=== PATIENT | male | born 1950 | race Caucasian/White ===

== ENCOUNTER → 2020-05-12 | Outpatient (CLI) | payer SELFPAY ==
--- NOTE | 2020-05-12 12:50 | KCIC ---
RS Compliance Statement: One or more of the following individualized dose reduction techniques were utilized for this examination: 1. Automated exposure control 2. Adjustment of the mA and/or kV according to patient size 3. Use of iterative reconstruction technique Coronary calcium score CT chest without contrast History: 69-year-old male, essential hypertension, hypercholesterolemia, family history of CAD. Technique: With retrospective electrocardiogram gating axial reconstructed noncontrast images of the chest at the level of the coronary arteries was performed. Images were post processed on workstation and calcium score calculated using the modified Agatston Janowitz protocol. Findings: Total coronary calcium score is 1413. This is an extensive plaque burden and very high cardiovascular disease risk. This is based on the calcium score of 0 of the left main coronary artery, 481.6 of the left anterior descending artery, score of 427.2 of the left circumflex artery and score of 504.5 of the right coronary artery. Noncoronary findings demonstrate aneurysm of the ascending thoracic aorta, diameter is 4.5 cm. The cardiac size is normal, no pericardial effusion. The visualized upper abdomen is unremarkable. Peripheral groundglass opacity measuring approximately 8 mm in the posterior left lower lobe may be due to scarring, image 25. Visualized lungs are otherwise clear. IMPRESSION: 1. Patient's total calcium score is 1413. 2. Aneurysm of the ascending thoracic aorta. Electronically signed by: Michael Miller MD (05/12/2020 12:47 PM) [id number]
== END | disposition home or self-care (01) ==
LOC: KCIC CT 10:34
PROVIDERS: ATTEND Internal Medicine Cardiovascular Disease
DX: Z13.6 Encounter for screening for cardiovascular disorders (principal); I10 Essential (primary) hypertension; I71.2 Thoracic aortic aneurysm, without rupture
CPT/HCPCS: 75571

== ENCOUNTER → 2020-05-25 | Outpatient (CLI) | payer MEDICARE, OTHER ==
--- NOTE | 2020-05-26 16:28 | CARD ---
MR#: [id number] Date of Study: 05/25/2020 Ordering Physician: TIFFANIE BENTLEY, Referring Physician: TIFFANIE BENTLEY, Tech: Scarlet Narvaez APPROVED REPORT EXAM: Two-dimensional and M-mode echocardiogram with Doppler and color Doppler. INDICATION Hypertension/HCVD RISK FACTORS Hypertension Hyperlipidemia 2D DIMENSIONS Left Atrium(2D)3.2 (1.6-4.0cm)IVSd1.3 (0.7-1.1cm) Aortic Root(2D)3.8 (2.0-3.7cm)LVDd5.0 (3.9-5.9cm) LVOT Diameter2.2 (1.8-2.4cm)PWd1.1 (0.7-1.1cm) LVDs3.0 (2.5-4.0cm)FS (%) 40.5 % SV85.7 ml Aortic Valve AoV Peak Antony.107.4cm/sAoV VTI20.4cm AO Peak GR.4.6mmHgLVOT Peak Antony.80.9cm/s LVOT VTI 15.21cmAO Mean GR.3mmHg WHIT (VMAX)2.76iw6YCL (VTI)2.90cm2 Mitral Valve MV E Qzpngcio32.1cm/sMV DECEL KDII032wq MV A Zthpmdft35.9cm/sMV E Mean Gr.1mmHg MV RPU731roX/A Ratio0.9 MVA (PHT)1.54cm2 TDI E/Lateral E'5.7E/Medial E'7.0 Pulmonary Valve PV Peak Oxzpdjyh03.8cm/sPV Peak Grad.4mmHg Tricuspid Valve TR P. Wxqodjkl436zc/sRAP QJDDKCNW3anOo TR Peak Gr.64jcGoBRQB66vrCf LEFT VENTRICLE The left ventricle is normal size. There is borderline to mild concentric left ventricular hypertroph y. The left ventricular systolic function is normal and the ejection fraction is within normal range. The Ejection Fraction is 55-60%. There is normal LV segmental wall motion. Transmitral Doppler flow pattern is Grade I-abnormal relaxation pattern. RIGHT VENTRICLE The right ventricle is normal size. The right ventricle is mildly hypertrophied. The right ventricula r systolic function is normal. ATRIA The left atrium size is normal. The right atrium size is normal. The interatrial septum is intact wit h no evidence for an atrial septal defect or patent foramen ovale as noted on 2-D or Doppler imaging. AORTIC VALVE The aortic valve is normal in structure and function. Doppler and Color Flow revealed no significant aortic regurgitation. There is no significant aortic valvular stenosis. Calculated aortic valve area is 3.29 cm2 with maximum pressure gradient of 5 mmHg and mean pressure gradient of 3 mmHg. MITRAL VALVE The mitral valve is normal in structure and function. There is no evidence of mitral valve prolapse. There is no mitral valve stenosis. Doppler and Color-flow revealed trace mitral regurgitation. TRICUSPID VALVE The tricuspid valve is not well visualized. Doppler and Color Flow revealed trace tricuspid regurgita tion with an estimated PAP of 23 mmHg. There is no tricuspid valve stenosis. PULMONIC VALVE The pulmonic valve is not well visualized. Doppler and Color Flow revealed no pulmonic valvular regur gitation. GREAT VESSELS The aortic root is mildly enlarged. The ascending aorta is mildly dilated measuring 4.02 cm The IVC i s normal in size and collapses >50% with inspiration. PERICARDIAL EFFUSION There is no evidence of significant pericardial effusion. Critical Notification Critical Value: No <Conclusion> The left ventricle is normal size. The left ventricular systolic function is normal and the ejection fraction is within normal range. The Ejection Fraction is 55-60%. There is borderline to mild concentric left ventricular hypertrophy. Doppler and Color Flow revealed no significant aortic regurgitation. There is no significant aortic valvular stenosis. Doppler and Color-flow revealed trace mitral regurgitation. Doppler and Color Flow revealed trace tricuspid regurgitation with an estimated PAP of 23 mmHg. The ascending aorta is mildly dilated measuring 4.02 cm Signed by : Bartolo Alvarez MD Electronically Approved : 05/26/2020 16:27:16
== END | disposition home or self-care (01) ==
LOC: ECHO 14:27 → EDUNIT# 15:00
PROVIDERS: ATTEND Internal Medicine Cardiovascular Disease
DX: I51.7 Cardiomegaly (principal); I25.10 Atherosclerotic heart disease of native coronary artery without angina pectoris
CPT/HCPCS: 93306

== ENCOUNTER → 2020-05-28 | Outpatient (CLI) | payer MEDICARE, OTHER ==
--- NOTE | 2020-05-28 15:41 | RAD ---
MR#: [id number] Date of Study: 05/28/2020 Ordering Physician: TIFFANIE BENTLEY, Referring Physician: DIMITRIOS AGUILAR Tech: RT Sarah (R) (N) APPROVED REPORT Test Type: Exercise Stress Nurse/Tech: Lanette Caputo RN Test Indications: CAD Cardiac History: HTN, See EMR. Medications: See EMR. Medical History: See EMR. Resting ECG: SR Resting Heart Rate: 70 bpm Resting Blood Pressure: 136/86mmHg Pretest Chest Pain: No chest pain Nurse/Tech Notes Lungs CTA, Heart tones regular. Consent: The procedure was explained to the patient in lay terms. Informed consent was witnessed. Warner eout was entered into [employer]. History and Stress Test performed by JUDITH Connor Stress Symptoms Dyspnea POST EXERCISE Reason for Termination: Reached target heart rate Target HR: Yes Max HR: 137 bpm 92% of Maximum Predicted HR: 149 bpm Exercise duration: 4:43 min:sec, 3 Stage Exercise capacity: 10METs Max Blood Pressure: 158/87mmHg Blood Pressure response to exercise: Normal blood pressure response during stress. Heart Rate response to exercise: WNL Chest Pain: No. Arrhythmia: No. ST Change: No. INTERPRETATION Stress EKG Conclusion: The resting EKG shows a normal sinus rhythm. The stress EKG shows no significant changes from baseline. No EKG evidence of stress-induced ischemia. Imaging Protocol IMAGE PROTOCOL: Rest Tc-99m/stress Tc-99m 1 day Rest: Stress: Viability: Radiopharm.Tc99m LmznnnxzvBq97w Sestamibi Dwbe57lHs 33mCi Duration 13min. 13min. Img Date 05/28/2020 05/28/2020 Inj-Img Ogoy12dys. 60min. Post-Injection Exercise: 1 minute Rest Admin Site:IV - Right AntecubitalAdministrator:RT Rahel (R)(N) Stress Admin Site: IV - Right AntecubitalAdministrator: JUDITH Connor STRESS DATA End Diast. Vol.91.0mlLVEDV index BSA45.0ml End Syst. Vol.27.0mlLVESV index BSA13.0ml Myocardial Lrwv981.0gEject. Mnonlecu43.0% Stress Scores Regional WT1.00Summed WT11.00 Regional WM0.00Summed WM3.00 LV Perfusion The stress scans showed no significant defects. The rest scans showed no significant defects. Nuclear imaging shows no reversible ischemia or infarct. Wall Motion Left ventricular systolic function is normal with no regional wall motion abnormalities and an ejecti on fraction of 70%. LV Perf. Quant 17 Seg. SSS2.00 17 Seg. SRS2.00 17 Seg. SDS0.00 Stress Defect Extent (% LAD)0.00Rest Defect Extent (% LAD)0.00Rev. Defect Extent (% LAD)0.00 Stress Defect Extent (% LCX) 5.00Rest Defect Extent (% LCX)7.50Rev. Defect Extent (% LCX)0.00 Stress Defect Extent (% RCA)0.00Rest Defect Extent (% RCA)0.00Rev. Defect Extent (% RCA)0.00 Stress Defect Extent (% EDI)0.90Rest Defect Extent (% EDI)1.30Rev. Defect Extent (% EDI)0.00 Conclusion 1. Reasonably good exercise tolerance with the patient walking for 4 minutes and 43 seconds on a Bruc e protocol. 2. No reported chest pain with exertion. 3. No EKG evidence of stress-induced ischemia. 4. Nuclear imaging shows no reversible ischemia or infarct. 5. Normal left ventricular systolic function with an ejection fraction of 70%. 6. Low risk treadmill nuclear stress test. Signed by : Bartolo Alvarez MD Electronically Approved : 05/28/2020 15:41:35
== END | disposition home or self-care (01) ==
LOC: NM 09:53
PROVIDERS: ATTEND Internal Medicine Cardiovascular Disease
DX: I25.10 Atherosclerotic heart disease of native coronary artery without angina pectoris (principal); I10 Essential (primary) hypertension
CPT/HCPCS: 78452; 93017; A9500

== ENCOUNTER → 2021-12-03 | Outpatient (CLI) | payer MEDICARE ==
--- NOTE | 2021-12-03 17:45 | KCIC ---
XR RIGHT HIP (WITH OR WITHOUT PELVIS) 2 VIEWS Clinical Indication: Reason: WORSENING RIGHT HIP PAIN X 3-4 WEEKS / Spl. Instructions: / History: Comparison: None. Findings: There is mild arthropathy of the bilateral hips for patient age. There is no acute fracture or disloc ation. No acute pelvic fracture. The sacral iliac joints are symmetric. There is degenerative spondyl osis of the lower lumbar spine. Mild stool in the rectum. IMPRESSION: No acute fracture or dislocation. Electronically signed by: Michael Miller MD (12/03/2021 5:43 PM) [id number]
== END ==
LOC: KCIC 13:45
PROVIDERS: ATTEND Family Medicine
DX: M16.0 Bilateral primary osteoarthritis of hip (principal); M47.816 Spondylosis without myelopathy or radiculopathy, lumbar region
CPT/HCPCS: 73502

== ENCOUNTER → 2021-12-08 | Outpatient (CLI) | payer MEDICARE ==
--- NOTE | 2021-12-08 17:56 | CARD ---
MR#: [id number] Date of Study: 12/08/2021 Ordering Physician: MARYAM MILLER, Referring Physician: MARYAM MILLER, Tech: [facility] APPROVED REPORT EXAM: Two-dimensional and M-mode echocardiogram with Doppler and color Doppler. Other Information Quality : AverageHR: 93bpm Rhythm : NSRTechnically limited study due to INDICATION Dyspnea RISK FACTORS Hypertension 2D DIMENSIONS Left Atrium(2D)3.8 (1.6-4.0cm)IVSd1.3 (0.7-1.1cm) Aortic Root(2D)3.8 (2.0-3.7cm)LVDd4.2 (3.9-5.9cm) LVOT Diameter2.1 (1.8-2.4cm)PWd1.2 (0.7-1.1cm) IVSs1.6 (0.8-1.2cm)LVDs3.1 (2.5-4.0cm) FS (%) 27.1 %PWs1.7 (0.8-1.2cm) SV42.3 mlLVEF(%)53.2 (>50%) Aortic Valve AoV Peak Antony.99.2cm/sAoV VTI17.7cm AO Peak GR.3.9mmHgLVOT Peak Antony.100.7cm/s LVOT VTI 19.51cmAO Mean GR.2mmHg WHIT (VMAX)2.65ww4DMG (VTI)3.85cm2 Mitral Valve MV E Ijnyvybs67.8cm/sMV DECEL QMDY347xp MV A Twhjggnm77.3cm/sMV NDY90zd E/A Ratio0.5MVA (PHT)3.05cm2 TDI E/Lateral E'5.7E/Medial E'7.4 Pulmonary Valve PV Peak Iaztbifu36.4cm/sPV Peak Grad.3mmHg Tricuspid Valve TR P. Nevcnhoc708wa/sTR Peak Gr.16mmHg LEFT VENTRICLE The left ventricle is normal size. There is mild concentric left ventricular hypertrophy. The left ve ntricular systolic function is normal. Estimated ejection fraction 55%. There is normal LV segmental wall motion. Transmitral Doppler flow pattern is Grade I-abnormal relaxation pattern. RIGHT VENTRICLE The right ventricle is normal size. There is normal right ventricular wall thickness. The right ventr icular systolic function is normal. ATRIA The left atrium size is normal. The right atrium size is normal. The interatrial septum is intact wit h no evidence for an atrial septal defect or patent foramen ovale as noted on 2-D or Doppler imaging. AORTIC VALVE The aortic valve is normal in structure and function. Doppler and Color Flow revealed no significant aortic regurgitation. There is no significant aortic valvular stenosis. MITRAL VALVE The mitral valve is normal in structure and function. There is no evidence of mitral valve prolapse. There is no mitral valve stenosis. Doppler and Color-flow revealed trace mitral regurgitation. TRICUSPID VALVE The tricuspid valve is normal in structure and function. Doppler and Color Flow revealed trace tricus pid regurgitation. Estimated PAP 20 mmHg. There is no tricuspid valve stenosis. PULMONIC VALVE The pulmonary valve is normal in structure and function. Doppler and Color Flow revealed no pulmonic valvular regurgitation. GREAT VESSELS The aortic root is mildly enlarged. The ascending aorta is Mildly dilated. The IVC is normal in size and collapses >50% with inspiration. PERICARDIAL EFFUSION There is no evidence of significant pericardial effusion. Critical Notification Critical Value: No <Conclusion> The left ventricular systolic function is normal. Estimated ejection fraction 55%. There is normal LV segmental wall motion. Transmitral Doppler flow pattern is Grade I-abnormal relaxation pattern. Trace mitral regurgitation. Trace tricuspid regurgitation. Estimated PAP 20 mmHg. There is no evidence of significant pericardial effusion. Signed by : David Taveras, Electronically Approved : 12/08/2021 17:56:14
== END ==
LOC: ECHO 13:03
PROVIDERS: ATTEND Family Medicine
DX: I51.7 Cardiomegaly (principal); I77.810 Thoracic aortic ectasia; R06.00 Dyspnea, unspecified
CPT/HCPCS: 93306; C8929

== ENCOUNTER 2022-01-02 08:06 | Emergency (ER) | payer MEDICARE ==
[~2022-01-02] VITALS: Ht 177.8 cm; Wt 90.2 kg
[2022-01-02] MEDS ORDERED: KETOROLAC 30 MG/ML VIAL. IVP ONE (08:45)
[2022-01-02] MEDS ORDERED: IV NORMAL SALINE 1000ML BAG 1,000 ML IV ONE (08:45)
[2022-01-02] MEDS ORDERED: ACETAMINOPHEN 500 MG TABLET PO ONE (08:45)
[2022-01-02 09:14] LABS: BASO % 0 % (0-3); EOS # 0.1 x10^3/uL (0.0-0.7); EOS % 1 % (0-3); HEMATOCRIT 34.8 % (39.0-53.0); HEMOGLOBIN 12.1 g/dL (13.0-17.5); LYMPH # 0.6 x10^3/uL (1.0-4.8); LYMPH % 7 % (24-48); MEAN CORPUSCULAR HEMOGLOBIN 31 pg (25-35); MEAN CORPUSCULAR HGB CONC 35 g/dL (31-37); MEAN CORPUSCULAR VOLUME 90 fL (79-100); MONO # 0.8 x10^3/uL (0.0-1.1); MONO % 9 % (0-9); NEUT # 6.8 x10^3/uL (1.8-7.7); NEUT % 83 % (31-73); PLATELET COUNT 442 x10^3/uL (140-400); RED BLOOD COUNT 3.87 x10^6/uL (4.30-5.70); RED CELL DISTRIBUTION WIDTH 12.3 % (11.5-14.5); WHITE BLOOD COUNT 8.2 x10^3/uL (4.0-11.0)
[2022-01-02 09:19] LABS: CALCIUM 9.1 mg/dL (8.5-10.1); CREATININE 0.7 mg/dL (0.7-1.3); GFR 110.5; POTASSIUM 3.9 mmol/L (3.5-5.1)
[2022-01-02 09:26] LABS: ALBUMIN 3.1 g/dL (3.4-5.0); ALBUMIN/GLOBULIN RATIO 0.8 (1.0-1.7); C-REACTIVE PROTEIN 96.5 mg/L (0-3.3); TOTAL BILIRUBIN 0.6 mg/dL (0.2-1.0); TOTAL PROTEIN 7.1 g/dL (6.4-8.2)
--- NOTE | 2022-01-02 09:45 | PHYS DOC ---
Past Medical History Past Surgical History: Knee Replacement Smoking Status: Never Smoker Alcohol Use: Occasionally Adult General Chief Complaint Chief Complaint: GENERALIZED BODY ACHES HPI HPI 71-year-old male with a history of hypertension and hyperlipidemia, quite active and playing handball 3 times a week at baseline, presents for evaluation of about 3 weeks of generalized muscle aches. Discomfort localizes to the large muscle groups of the upper and lower body bilaterally, affecting hip flexors and extensors, upper back muscles and the large muscles of the upper arms. Discomfort is described as a soreness and is not reproducible to direct palpation anywhere. Patient had never had the symptoms before 3 weeks ago. He has been on anti-inflammatory medications including NSAIDs and steroids. Finished a course of steroids which he states was initially effective but then pain came back. Aside from significant bilateral muscle soreness, patient denies other symptoms and specifically denies fevers, nausea or vomiting, upper respiratory congestion/rhinorrhea, cough, sore throat, shortness of breath or chest pain of any kind, abdominal pain of any kind, flank pain, midline back pain, dysuria, hematuria, polyuria or oliguria, groin pain, changes in bowel habits. Vital signs are appropriate here the patient is in no acute distress. He denies any medication changes recently and states the statin he is on is one that he has been on for a number of years. Review of Systems Review of Systems A 12 point review of systems was completed and was negative except where noted in HPI above. Current Medications Current Medications Current Medications Medications (Trade) Dose Ordered Sig/Jessica Start Time Stop Time Status Last Admin Dose Admin Acetaminophen (Tylenol) 1,000 mg 1X ONCE 01/02/22 08:45 01/02/22 08:46 DC 01/02/22 08:59 1,000 MG Ketorolac Tromethamine (Toradol 30mg Vial) 30 mg 1X ONCE 01/02/22 08:45 01/02/22 08:46 DC 01/02/22 08:59 30 MG Sodium Chloride 1,000 ml @ 1,000 mls/hr 1X ONCE 01/02/22 08:45 01/02/22 09:44 DC 01/02/22 08:58 1,000 MLS/HR Allergies Allergies Allergies Coded Allergies Type Severity Reaction Last Updated Verified No Known Drug Allergies 01/06/21 No Physical Exam Physical Exam 71-year-old male appearing nontoxic and in no acute distress. Head is normocephalic and atraumatic. Neck is supple and nontender. Oropharynx is moist. Lungs are clear to auscultation at all stations. There is a normal S1 and S2 without rubs or gallops and capillary refill is appropriate, less than 2 seconds globally. Abdomen is soft, nontender and nondistended. Skin is warm and dry without cyanosis, clubbing or edema. Psychiatrically, the patient demonstrates appropriate mood and affect and is alert. Evaluation of the extremities reveals BUEs and BLEs neurovascularly intact distally with strength 5 out of 5, sensation intact light touch in all nerve distributions, radial, DP and PT pulses 2+ and equal bilaterally, capillary refill less than 2 seconds, hands and feet warm and well-perfused. No dependent peripheral edema distally. No calf tenderness or swelling bilaterally. Homans test is negative bilaterally. No erythema, warmth or swelling to any area of the BUEs or BLEs. No joint irritability to any joint of the BUEs or BLEs. There is discomfort to the large proximal muscle groups of bilateral arms and legs with ranging of the associated joints. Current Patient Data Vital Signs Vital Signs Date Time Temp Pulse Resp B/P (MAP) Pulse Ox O2 Delivery O2 Flow Rate FiO2 01/02/22 10:47 93 18 148/89 (108) 98 Room Air 01/02/22 08:10 98.1 98.1 Lab Values Laboratory Tests Test 01/02/22 08:56 White Blood Count 8.2 x10^3/uL (4.0-11.0) Red Blood Count 3.87 x10^6/uL (4.30-5.70) L Hemoglobin 12.1 g/dL (13.0-17.5) L Hematocrit 34.8 % (39.0-53.0) L Mean Corpuscular Volume 90 fL (79-100) Mean Corpuscular Hemoglobin 31 pg (25-35) Mean Corpuscular Hemoglobin Concent 35 g/dL (31-37) Red Cell Distribution Width 12.3 % (11.5-14.5) Platelet Count 442 x10^3/uL (140-400) H Neutrophils (%) (Auto) 83 % (31-73) H Lymphocytes (%) (Auto) 7 % (24-48) L Monocytes (%) (Auto) 9 % (0-9) Eosinophils (%) (Auto) 1 % (0-3) Basophils (%) (Auto) 0 % (0-3) Neutrophils # (Auto) 6.8 x10^3/uL (1.8-7.7) Lymphocytes # (Auto) 0.6 x10^3/uL (1.0-4.8) L Monocytes # (Auto) 0.8 x10^3/uL (0.0-1.1) Eosinophils # (Auto) 0.1 x10^3/uL (0.0-0.7) Basophils # (Auto) 0.0 x10^3/uL (0.0-0.2) Erythrocyte Sedimentation Rate 63 (0-15) H Sodium Level 127 mmol/L (136-145) L Potassium Level 3.9 mmol/L (3.5-5.1) Chloride Level 94 mmol/L (98-107) L Carbon Dioxide Level 24 mmol/L (21-32) Anion Gap 9 (6-14) Blood Urea Nitrogen 7 mg/dL (8-26) L Creatinine 0.7 mg/dL (0.7-1.3) Estimated GFR (Cockcroft-Gault) 110.5 BUN/Creatinine Ratio 10 (6-20) Glucose Level 105 mg/dL (70-99) H Calcium Level 9.1 mg/dL (8.5-10.1) Total Bilirubin 0.6 mg/dL (0.2-1.0) Aspartate Amino Transferase (AST) 21 U/L (15-37) Alanine Aminotransferase (ALT) 31 U/L (16-63) Alkaline Phosphatase 81 U/L (46-116) Creatine Kinase 42 U/L (39-308) C-Reactive Protein, Quantitative 96.5 mg/L (0-3.3) H Total Protein 7.1 g/dL (6.4-8.2) Albumin 3.1 g/dL (3.4-5.0) L Albumin/Globulin Ratio 0.8 (1.0-1.7) L Procalcitonin < 0.10 ng/mL (0.00-0.10) Laboratory Tests 01/02/22 08:56 Laboratory Tests 01/02/22 08:56 EKG EKG [] Radiology/Procedures Radiology/Procedures [] Course & Med Decision Making Course & Med Decision Making 71-year-old male here with 3 weeks of myalgias affecting arms and legs and upper torso. Differential includes statin-related myopathy as well as various autoimmune and rheumatologic entities. Will place IV and given IV fluid bolus and some Toradol for discomfort and will check labs as noted and will then reevaluate. Set expectations with the patient that we will likely not arrive at a diagnosis at this visit and that the patient will need to follow-up with his primary doctor and likely with rheumatology if work-up is reassuring. He under stands and agrees. 1110: Patient resting comfortably in no acute distress on serial reassessments. Large work-up is remarkable only for very mild hyponatremia which has been addressed with IV fluids as well as marked ESR/CRP elevation. Case discussed in detail with Dr. Keegan Hsieh of [facility] rheumatology who recommends a dose of IV dexamethasone here and discharged home with 20 mg of prednisone daily. His office will arrange close follow-up with Mr. Amador for further subspecialty evaluation and a discussion of next best steps in care. He feels polymyalgia rheumatica may be a good fit for the patient's symptoms and laboratory findings. Patient understands that if he feels worse instead of better or develops other new symptoms of concern that he should return to the emergency department right away for reevaluation. All questions are answered Dragon Disclaimer Dragon Disclaimer This electronic medical record was generated, in whole or in part, using a voice recognition dictation system. Departure Departure Impression: Primary Impression: Myalgia Disposition: 01 HOME / SELF CARE / HOMELESS Condition: IMPROVED Referrals: KEEGAN MILLER MD (PCP) Patient Instructions: Myalgia, Adult Additional Instructions: Follow-up very closely with Dr. Keegan Hsieh of [facility] rheumatology in the office in the next 1 week for a reevaluation of your symptoms and discussion of next best steps in care. His office should be reaching out to schedule an lilly ointment but I recommend you call them tomorrow at [phone] and let the clinical dietetic technician know that Dr. Hsieh wanted you to be worked in for a close follow-up appointment in the next 1 week. In the meantime, take 20 mg of prednisone daily. You may also take up to 600 mg of ibuprofen (three 200mg pills) every 6-8 hours as needed for discomfort. For pain not responsive to the other medicines you may take an oxycodone pill every 6-8 hours as needed. Be careful because oxycodone can make you sleepy so do not drive or work or operate machinery while taking it. Return to the emergency department right away for worsening symptoms of any kind or with any other new symptoms of concern. Scripts Oxycodone Hcl (OXYCODONE HCL IMMED.RELEASE ) 5 Mg Tablet 5 MG PO PRN Q6HRS PRN for PAIN, #8 TAB 0 Refills Prov: SADIE SERRATO MD 01/02/22 [prednisone 20mg tab] No Conflict Check 20 MG PO DAILY for 14 Days Prov: SADIE SERRATO MD 01/02/22 SADIE SERRATO MD Jan 02, 2022 09:45
[2022-01-02] MEDS ORDERED: DEXAMETHASONE SOD PHOS 20 MG/5 ML VIAL. IV ONE (11:15)
[2022-01-02 11:19] VITALS: BP 149/97
[2022-01-02] MEDS ORDERED: PREDNISONE 20 MG PO (11:19)
[2022-01-02] MEDS ORDERED: OXYC5TAB4 PO (11:19)
== END 2022-01-02 11:28 | disposition home or self-care (01) ==
LOC: ER 08:06
DX: M79.10 Myalgia, unspecified site (principal); I10 Essential (primary) hypertension; E78.5 Hyperlipidemia, unspecified
CPT/HCPCS: 36415; 80053; 82550; 84145; 85025; 85651; 86140; 96361; 96374; 96375; 99285; J1100; J1885; J7030